=== PATIENT | female | born 1985 | race Hispanic/Latino ===

== ENCOUNTER 2023-05-10 11:27 | Outpatient (CLI) | payer OTHER, SELFPAY ==
[2023-05-10] VITALS (8 sets, daily range): BP systolic 116–133; BP diastolic 78–87; PULSE 62–83
--- NOTE | 2023-05-10 11:27 | PC.NURSE ---
The floor coverings salesperson from [facility] office arrived with pt and provided initial translation and explained to pt plan for care and isolation precautions.
--- NOTE | 2023-05-10 11:30 | PC.NURSE ---
Pt placed on droplet isolation as person under investigation for Covid.
--- NOTE | 2023-05-10 11:40 | PC.NURSE ---
Barney Woods [facility] informed of this 34 wk pt's arrival from [facility] who reported pt had headache, blurred vision, body aches, no fever, and BP was higher than her normal in the office. Pt is a previous C/S. Order received for labs.
--- NOTE | 2023-05-10 12:40 | PC.NURSE ---
Used translation line ( Brittany- ID# [id number]) to obtain additional information from pt. Pt states her headache, blurred vision, and some body aches were this morning and she doesn't have those symptoms anymore. Pt informed I have seen a couple of contractions or uterine irritability on the monitor- she denies feeling any abdominal pain, tightening, cramping, pressure, back, or thigh pain. Denies vaginal leakage of fluid or bleeding.
[2023-05-10 12:43] LABS: Basophils Percent Auto 0.3 % (0.2-1.2); Eosinophils Percent Auto 0.3 % (0-4.4); Hematocrit 35.6 % (37.0-47.0); Hemoglobin 12.1 g/dL (12.0-15.0); Immature Granulocyte Absolute 0.05 K/mm3 (0.00-0.031); Immature Granulocyte Percent A 0.4 % (0-0.5); Lymphocytes Absolute Auto 0.99 K/mm3 (0.9-3.2); Lymphocytes Percent Auto 8.8 % (18.3-44.2); Mean Corpuscular Hemoglobin 30.9 pg (26-34); Mean Corpuscular Volume 90.8 fl (80-100); Mean Platelet Volume 12.3 fl (7.4-10.4); Monocytes Absolute Auto 0.7 K/mm3 (0.1-0.6); Monocytes Percent Auto 6.3 % (2.6-8.5); Neutrophils Absolute Auto 9.5 K/mm3 (1.3-6.7); Neutrophils Percent Auto 83.9 % (45.5-73.1); Platelet Count Result 183 k/mm3 (150-375); Red Blood Count 3.92 M/mm3 (4.2-5.4); Red Cell Distribution Width 13.5 % (11.5-14.5); White Blood Count 11.3 K/mm3 (4.5-10.0)
[2023-05-10 12:54] LABS: Alanine Aminotransferase 17 U/L (6-35); Alkaline Phosphatase 171 U/L (38-126); Anion Gap 8 mmol/L (8-16); Aspartate Amino Transferase 21 U/L (14-36); Bilirubin,Total 0.4 mg/dL (0.2-1.3); Blood Urea Nitrogen 20 mg/dL (7-17); Calcium 8.8 mg/dL (8.4-10.2); Carbon Dioxide 18 mmol/L (22-30); Chloride 107 mmol/L (98-107); Estimated Glomerular Filt Rate > 60; Glucose 113 mg/dL (65-110); Potassium 4.4 mmol/L (3.4-5.0); Sodium 133 mmol/L (137-145)
[2023-05-10 13:19] LABS: Influenza A QL RT-PCR Negative (Negative); Influenza B QL RT-PCR Negative (Negative); RSV RNA, RT-PCR Negative (Negative); SARS-CoV-2 RNA PCR Negative (Negative)
--- NOTE | 2023-05-10 13:39 | PC.NURSE ---
Barney GIVENSM informed of reactive NST, BP's, and lab results. To fax lab results to office. OK to discharge to home with PIH precautions.
--- NOTE | 2023-05-10 14:15 | PC.NURSE ---
Used translation line (Wave - Private Location App ID # [id number]) to explain lab results to pt and go over discharge instructions. Also, scheduled pt for a preadmission appt prior to her scheduled C/S. Answered all of pt's questions and gave work release form for her to be late to work today.
== END 2023-05-10 14:17 | disposition home or self-care (01) ==
LOC: ANHOBOP 11:37 → ANHOBPP 11:37
PROVIDERS: Advanced Practice Midwife; Visit Provider Obstetrics & Gynecology
DX: O13.9 Gestational [pregnancy-induced] hypertension without significant proteinuria, unspecified trimester (principal)
CPT/HCPCS: 36415; 59025; 80053; 84550; 85025; 87637; 99199

== ENCOUNTER 2023-05-25 09:43 | Outpatient (CLI) | payer OTHER, SELFPAY ==
[2023-05-25] VITALS (11 sets, daily range): BP systolic 108–174; BP diastolic 78–106; PULSE 48–70
[2023-05-25 10:17] LABS: Basophils Percent Auto 0.3 % (0.2-1.2); Eosinophils Absolute Auto 0.1 K/mm3 (0-0.3); Eosinophils Percent Auto 0.9 % (0-4.4); Hematocrit 38.8 % (37.0-47.0); Hemoglobin 12.7 g/dL (12.0-15.0); Immature Granulocyte Absolute 0.03 K/mm3 (0.00-0.031); Immature Granulocyte Percent A 0.3 % (0-0.5); Lymphocytes Absolute Auto 2.33 K/mm3 (0.9-3.2); Lymphocytes Percent Auto 25.6 % (18.3-44.2); Mean Corpuscular HGB Conc 32.7 g/dl (32-36); Mean Corpuscular Hemoglobin 30.4 pg (26-34); Mean Corpuscular Volume 92.8 fl (80-100); Mean Platelet Volume 12.3 fl (7.4-10.4); Monocytes Absolute Auto 0.8 K/mm3 (0.1-0.6); Monocytes Percent Auto 9.2 % (2.6-8.5); Neutrophils Absolute Auto 5.8 K/mm3 (1.3-6.7); Neutrophils Percent Auto 63.7 % (45.5-73.1); Platelet Count Result 192 k/mm3 (150-375); Red Blood Count 4.18 M/mm3 (4.2-5.4); Red Cell Distribution Width 13.7 % (11.5-14.5); White Blood Count 9.1 K/mm3 (4.5-10.0)
[2023-05-25 10:22] LABS: Appearance Urine Clear (Clear); Bacteria Urine None Seen /hpf; Bilirubin Urine Negative (Negative); Blood Urine 1+ (Negative); Color Urine Yellow (Yellow); Glucose Urine UA Negative (Negative); Ketones Urine Negative (Negative); Leukocyte Esterase Ur Negative LEU/UL (NEGATIVE); Nitrate Urine Negative (Negative); Non Pathogenic Casts 0-2; Protein Urine 3+ mg/dL (Negative); RBC Urine 0-2 /hpf (0-2); Squamous Epithelial Cell Urine Occasional /hpf (Few); Urobilinogen Urine 0.2 mg/dL (<2.0); WBC Urine 0-5 /hpf (0-3); pH Urine 5.5 (5.0-9.0)
[2023-05-25 10:27] LABS: Alanine Aminotransferase 17 U/L (6-35); Alkaline Phosphatase 234 U/L (38-126); Anion Gap 8 mmol/L (8-16); Aspartate Amino Transferase 23 U/L (14-36); Bilirubin,Total 0.3 mg/dL (0.2-1.3); Blood Urea Nitrogen 22 mg/dL (7-17); Carbon Dioxide 17 mmol/L (22-30); Chloride 109 mmol/L (98-107); Estimated Glomerular Filt Rate > 60; Glucose 89 mg/dL (65-110); Potassium 4.5 mmol/L (3.4-5.0); Sodium 134 mmol/L (137-145); Uric Acid 7.2 mg/dL (2.5-7.5)
[2023-05-25 10:29] LABS: Creatinine Urine 36.4 mg/dL
[2023-05-25 10:40] LABS: Add Urine Microscopic? YES
[2023-05-25 10:56] LABS: Total Protein Urine Random 332 mg/dL; Ur Ttl Prot Creatinine Ratio 9.12 mg/mg (0-0.20)
--- NOTE | 2023-05-25 11:34 | PC.NURSE ---
1114- Dr. Lockhart notified of lab results, vital signs, and NST. Orders received to keep patient overnight, patient able to eat lunch, give celestone and tylenol for headache. NST qshift and vital signs q2 hours.
[2023-05-25] MEDS: ACETAMINOPHEN 500 MG TABLET 1000 MG PO (12:02)
[2023-05-25] MEDS: BETAMETHASONE SOD PHOS/ACETATE 30 MG/5 ML VIAL 12 MG IM (12:03)
--- NOTE | 2023-05-25 14:38 | PC.NURSE ---
Patient declines headache at this time. Vital signs WNL
--- NOTE | 2023-05-25 15:12 | PC.NURSE ---
1450- Dr. Lockhart updated on vital signs and patient's resolved headache. Okay to discharge, instructions given to return on Monday (05/27) for second dose of steroid, NST, and PIH labs. Strict precautions given on when to return to labor and delivery. Pre-e instructions given to patient. Patient in agreement with plan of care.
== END 2023-05-25 15:25 | disposition home or self-care (01) ==
LOC: ANHOBOP 09:52 → ANHOBPP 09:52
PROVIDERS: Visit Provider Obstetrics & Gynecology
DX: O13.9 Gestational [pregnancy-induced] hypertension without significant proteinuria, unspecified trimester (principal); Z3A.00 Weeks of gestation of pregnancy not specified
CPT/HCPCS: 36415; 59025; 80053; 81001; 82570; 84156; 84550; 85025; 87086; 96372; 99199; A9270; J0702

== ENCOUNTER 2023-05-29 10:44 | Inpatient (IN) | payer OTHER, SELFPAY ==
[2023-05-29] VITALS (12 sets, daily range): BP systolic 121–160; BP diastolic 85–99; PULSE 50–72; RESP 16; TEMP 36.4–36.8
[2023-05-29 11:36] LABS: Basophils Percent Auto 0.4 % (0.2-1.2); Eosinophils Absolute Auto 0.1 K/mm3 (0-0.3); Eosinophils Percent Auto 0.5 % (0-4.4); Hematocrit 38.5 % (37.0-47.0); Hemoglobin 12.8 g/dL (12.0-15.0); Immature Granulocyte Absolute 0.06 K/mm3 (0.00-0.031); Immature Granulocyte Percent A 0.5 % (0-0.5); Lymphocytes Absolute Auto 2.83 K/mm3 (0.9-3.2); Lymphocytes Percent Auto 25.9 % (18.3-44.2); Mean Corpuscular HGB Conc 33.2 g/dl (32-36); Mean Corpuscular Volume 93.2 fl (80-100); Mean Platelet Volume 12.7 fl (7.4-10.4); Monocytes Absolute Auto 0.9 K/mm3 (0.1-0.6); Monocytes Percent Auto 7.8 % (2.6-8.5); Neutrophils Absolute Auto 7.1 K/mm3 (1.3-6.7); Neutrophils Percent Auto 64.9 % (45.5-73.1); Platelet Count Result 197 k/mm3 (150-375); Red Blood Count 4.13 M/mm3 (4.2-5.4); Red Cell Distribution Width 14.1 % (11.5-14.5); White Blood Count 10.9 K/mm3 (4.5-10.0)
[2023-05-29 11:46] LABS: Creatinine Urine 100.3 mg/dL
[2023-05-29 11:46] LABS: Alanine Aminotransferase 15 U/L (6-35); Albumin Level 2.7 g/dL (3.5-5.1); Alkaline Phosphatase 221 U/L (38-126); Anion Gap 5 mmol/L (8-16); Aspartate Amino Transferase 21 U/L (14-36); Bilirubin,Total 0.3 mg/dL (0.2-1.3); Blood Urea Nitrogen 26 mg/dL (7-17); Calcium 8.1 mg/dL (8.4-10.2); Carbon Dioxide 19 mmol/L (22-30); Chloride 108 mmol/L (98-107); Estimated Glomerular Filt Rate > 60; Glucose 111 mg/dL (65-110); Potassium 4.1 mmol/L (3.4-5.0); Sodium 132 mmol/L (137-145); Uric Acid 7.9 mg/dL (2.5-7.5)
[2023-05-29 11:49] LABS: Appearance Urine Cloudy (Clear); Bacteria Urine Rare /hpf; Bilirubin Urine Negative (Negative); Blood Urine 1+ (Negative); Color Urine Yellow (Yellow); Glucose Urine UA Negative (Negative); Ketones Urine Negative (Negative); Leukocyte Esterase Ur Negative LEU/UL (NEGATIVE); Need Manual Microscopic Reviewed; Nitrate Urine Negative (Negative); Non Pathogenic Casts 0-2; Protein Urine 3+ mg/dL (Negative); RBC Urine 0-2 /hpf (0-2); Specific Grav Ur 1.014 (1.001-1.035); Squamous Epithelial Cell Urine Moderate /hpf (Few); Urobilinogen Urine 0.2 mg/dL (<2.0); WBC Urine 0-5 /hpf (0-3); pH Urine 5.5 (5.0-9.0)
[2023-05-29 11:53] LABS: Add Urine Microscopic? YES; Total Protein Urine Random 402 mg/dL; Ur Ttl Prot Creatinine Ratio 4.01 mg/mg (0-0.20)
--- NOTE | 2023-05-29 13:00 | PM.IMHP ---
H&P: HPI History of Present Illness Date/Time: 05/29/23 13:00 Chief Complaint: nonreassuring testing Narrative: 37-year-old female, multiparous, previous at 36 weeks and 5 days who presents for nonreassuring testing. She had a BPP of 6/10 and a nonreactive NST in the office. She has a nonreactive tracing here in Labor and delivery. she denies any loss of fluid, vaginal bleeding, contractions. She reports good movement. She denies any nausea, vomiting, fever, chills. She denies any chest pain or shortness of breath. Review of Systems Review of Systems: All systems reviewed & are unremarkable except as noted in HPI and below Constitutional: Constitutional: Denies chills, Denies fatigue, Denies fever(s) and Denies weakness Eyes: Eyes: Denies blurry vision, Denies change in vision, Denies loss of peripheral vision, Denies loss of vision, Denies other visual disturbances and Denies eye pain ENT: Denies vertigo, Denies dizziness, Denies hearing loss, Denies mouth pain, Denies nasal obstruction, Denies neck mass and Denies neck pain Cardiovascular: Cardiovascular: Denies chest pain, Denies diaphoresis, Denies syncope, Denies leg edema and Denies dyspnea Respiratory: Respiratory: Denies chest congestion, Denies cough, Denies hemoptysis, Denies dyspnea and Denies wheezing Gastrointestinal: Gastrointestinal: Denies abdominal pain, Denies constipation, Denies diarrhea, Denies nausea and Denies vomiting Genitourinary: Genitourinary: Denies hematuria, Denies change in libido, Denies nocturia, Denies genital lesions, Denies flank pain and Denies urinary urgency Musculoskeletal: Musculoskeletal: Denies abnormal gait, Denies back pain, Denies myalgias, Denies arthralgias, Denies joint swelling, Denies muscle weakness and Denies neck pain Integumentary/Breasts: Skin/Breast: Denies swelling, Denies breast pain, Denies breast mass, Denies dry skin, Denies nipple discharge, Denies unusual bruising and Denies jaundice Neurologic: Denies Neuro-related abnormal movements, Denies Abnormal speech present, Denies abnormal gait, Denies behavioral changes, Denies confusion, Denies vertigo, Denies dizziness, Denies syncope, Denies loss of vision, Denies memory loss, Denies convulsions and Denies weakness Psychiatric: Psychiatric: Denies abnormal sleep pattern, Denies behavioral changes, Denies change in libido, Denies confusion, Denies depression, Denies anhedonia and Denies memory loss Endocrine: Endocrine: Reports no additional endocrine complaints, Denies change in libido and Denies fatigue Hematologic/Lymphatic: Hematologic/Lymphatic: Reports no additional hematologic/lymphatic complaints Allergic/Immunologic: Allergic/Immunologic: Reports no additional allergic/immunologic complaints and Denies wheezing [facility] Family History Family History (Updated 05/27/23 @ 14:28 by Echo Aviles, JOSÉ MIGUEL) Grandparent Diabetes mellitus Social History Social History Substance use: never Spiritual care concerns: No Meds Home Medications and Allergies Home Medications Medication Instructions Recorded Confirmed Type insulin NPH isoph U-100 human 100 16 unit subcut HS 05/10/23 05/27/23 History unit/mL subcutaneous suspension (Humulin N NPH U-100 Insulin (isophane susp)) vit no.95-ferrous 1 tablet PO DAILY 05/10/23 05/27/23 History fumarate 28 mg-folic acid 800 mcg tablet () Allergies Allergy/AdvReac Type Severity Reaction Status Date / Time No Known Allergies Allergy Verified 05/27/23 14:14 Vital Signs Vital Signs - 24 hr 05/29/23 11:00 05/29/23 11:21 05/29/23 11:31 Pulse Rate 53 L 62 Blood Pressure 153/99 H 122/89 Oxygen Delivery Room Air 05/29/23 11:46 05/29/23 12:01 05/29/23 12:31 Pulse Rate 64 50 L 52 L Blood Pressure 123/99 H 160/86 H 133/94 H Oxygen Delivery Exam Const: General: cooperative, healthy appearing, comfortable and
[2023-05-29] MEDS: BETAMETHASONE SOD PHOS/ACETATE 30 MG/5 ML VIAL 12 MG IM (13:48)
[2023-05-29 16:32] LABS: HIV 1/2 Ab P24 Ag Result Negative (Negative)
[2023-05-29 18:00] LABS: Glucose Point of Care 147 mg/dl (65-105)
[2023-05-29] MEDS: INSULIN HUMAN NPH (*BKC) 100 UNITS/ML 16 UNITS SUB-Q (22:02)
[2023-05-29] MEDS: LACTATED RINGERS 1,000 ML 125 ML IV CONT (23:40)
[2023-05-30] VITALS (49 sets, daily range): BP systolic 102–173; BP diastolic 54–95; PULSE 49–75; RESP 16–18; TEMP 36.1–36.7; O2SAT 92–99
--- NOTE | 2023-05-30 01:34 | LDADM ---
This patient, aLdan Sawyer, was admitted to OB Post 115 on 05/29/23 at 13:30. Plans for labor, pain management and were discussed with patient. Patient/family oriented to hospital policies and general routines including ID bracelet, bed and alarms, visiting hours, pain management, procedures, bathroom and other care routines, personal items, smoking policy, room service/diet and guest tray routines, infant security routines, and visiting hours. Patient/Family are encouraged to report perceived risks to care and to ask questions if they do not understand what they are told or what they should do. See OBIX for further documentation.
[2023-05-30 05:39] LABS: Glucose Point of Care 179 mg/dl (65-105)
--- NOTE | 2023-05-30 06:24 | PN_ITS ---
This report was moved to the correct visit on 05/30/2023. The original report was signed by Graham Ramirez II, MD on 05/30/23623. Anes - Initial Pre Proc Eval Procedure: Operation Date: 05/30/23 07:30 Proposed Procedures p Section - Anne-Marie Lockhart MD Date/Time: 05/30/23 06:22 Surgeon: Anne-Marie Lockhart MD Pre Op Diagnosis: Repeat /PreAdmit Patient Data Age: 37 Gender: F Height: Weight: Allergies Allergy/AdvReac Type Severity Reaction Status Date / Time No Known Allergies Allergy Verified 05/27/23 14:14 Home Medications Medication Instructions Recorded Confirmed Type insulin NPH isoph U-100 human 100 16 unit subcut HS 05/10/23 05/29/23 History unit/mL subcutaneous suspension (Humulin N NPH U-100 Insulin (isophane susp)) vit no.95-ferrous 1 tablet PO DAILY 05/10/23 05/29/23 History fumarate 28 mg-folic acid 800 mcg tablet () Patient hx anesthesia problems: none Family hx anesthesia problems: none Results Review: All pre-operative results and documents have been reviewed as part of the pre- operative evaluation. [facility] Past Medical History Medical History (Updated 05/30/23 @ 06:23 by Graham Ramirez MD) 36 weeks gestation of Gestational diabetes mellitus (GDM) affecting , antepartum Pre-eclampsia in third trimester Surgical History Surgical History (Updated 05/30/23 @ 06:23 by Graham Ramirez MD) History of appendectomy Previous delivery, delivered Family History Family History Grandparent Diabetes mellitus Social History Social History Smoking status: Never smoker Second hand tobacco smoke exposure: No Substance use: never Lack of Transportation: No Lack of Food: Never True Current Housing: I Have Housing Concerned About Future Housing: No Difficulty Paying Gas/Electric Bills: No Difficulty Paying for Meds: No Currently Unemployed: No Education: Grade School Difficulty w/ Childcare or Family Care: No Spiritual care concerns: No Anes - Eval Final PreProcedure Day of Procedure 05/30/23 06:22 Patient weight: obese ASA classification: III Emergent: no Anesthetic plan: proceed Anesthesia type and monitoring: regional spinal and standard monitoring Results Review: All pre-operative results and documents have been reviewed as part of the pre- operative evaluation. Informed Consent: The patient's anesthetic plan and its attendant risks and benefits were discussed with the patient/family/POA. Questions were solicited and answers provided to the satisfaction of the patient/family/POA. This report may have been done utilizing a voice recognition system. Attempts have been made to correct errors. However, there may be uncorrected grammatical, spelling, and recognition errors present. Report Initialized date/time: Graham Ramirez II, MD 05/30/23623 Electronically signed by: Graham Ramirez II, MD 05/30/23623 [facility]
[2023-05-30] MEDS: INSULIN HUMAN REGULAR (*BKC) 100 UNITS/ML SUB-Q (06:31)
[2023-05-30] MEDS: LACTATED RINGERS 1,000 ML 125 ML IV CONT ×3 (06:35→09:30)
[2023-05-30 07:23] LABS: Glucose Point of Care 142 mg/dl (65-105)
--- NOTE | 2023-05-30 07:25 | WPDHPUPDATE1 ---
History and Physical Update Update Date/Time: 05/30/23 07:25 History and Physical has been reviewed, including an updated exam of the patient. There are NO changes in the patient's condition. Risks, benefits, and alternatives have been discussed and questions answered. Patient agrees to proceed with procedure.
--- NOTE | 2023-05-30 07:26 | PM.IMHP ---
H&P: [facility] History of Present Illness Date/Time: 05/30/23 07:26 Chief Complaint: Nonreassuring heart tone, nonreassuring testing Narrative: this patient is a 37-year-old multiparous female with a previous . She has preeclampsia, insulin controlled diabetes, nonreassuring testing. To proceed with today, she is 36 weeks and 6 days. She understands the procedure in detail. She understands risk. She understands that injuries may occur that result in hospitalization, more surgery, and severe illness. She understands there is a risk of hemorrhage and infection. She denies any nausea, vomiting, fever, chills. She denies any chest pain or shortness of breath. Review of Systems Review of Systems: All systems reviewed & are unremarkable except as noted in HPI and below Constitutional: Constitutional: Denies chills, Denies fatigue, Denies fever(s) and Denies weakness Eyes: Eyes: Denies blurry vision, Denies change in vision, Denies loss of peripheral vision, Denies loss of vision, Denies other visual disturbances and Denies eye pain ENT: Denies vertigo, Denies dizziness, Denies hearing loss, Denies mouth pain, Denies nasal obstruction, Denies neck mass and Denies neck pain Cardiovascular: Cardiovascular: Denies chest pain, Denies diaphoresis, Denies syncope, Denies leg edema and Denies dyspnea Respiratory: Respiratory: Denies chest congestion, Denies cough, Denies hemoptysis, Denies dyspnea and Denies wheezing Gastrointestinal: Gastrointestinal: Denies abdominal pain, Denies constipation, Denies diarrhea, Denies nausea and Denies vomiting Genitourinary: Genitourinary: Denies hematuria, Denies change in libido, Denies nocturia, Denies genital lesions, Denies flank pain and Denies urinary urgency Musculoskeletal: Musculoskeletal: Denies abnormal gait, Denies back pain, Denies myalgias, Denies arthralgias, Denies joint swelling, Denies muscle weakness and Denies neck pain Integumentary/Breasts: Skin/Breast: Denies swelling, Denies breast pain, Denies breast mass, Denies dry skin, Denies nipple discharge, Denies unusual bruising and Denies jaundice Neurologic: Denies Neuro-related abnormal movements, Denies Abnormal speech present, Denies abnormal gait, Denies behavioral changes, Denies confusion, Denies vertigo, Denies dizziness, Denies syncope, Denies loss of vision, Denies memory loss, Denies convulsions and Denies weakness Psychiatric: Psychiatric: Denies abnormal sleep pattern, Denies behavioral changes, Denies change in libido, Denies confusion, Denies depression, Denies anhedonia and Denies memory loss Endocrine: Endocrine: Reports no additional endocrine complaints, Denies change in libido and Denies fatigue Hematologic/Lymphatic: Hematologic/Lymphatic: Reports no additional hematologic/lymphatic complaints Allergic/Immunologic: Allergic/Immunologic: Reports no additional allergic/immunologic complaints and Denies wheezing [facility] Past Medical History Medical History (Updated 05/30/23 @ 07:28 by Anne-Marie Lockhart MD) 36 weeks gestation of Gestational diabetes mellitus (GDM) affecting , antepartum Pre-eclampsia in third trimester Surgical History Surgical History (Updated 05/30/23 @ 06:23 by Graham Ramirez MD) History of appendectomy Previous delivery, delivered Family History Family History Grandparent Diabetes mellitus Social History Social History Smoking status: Never smoker Second hand tobacco smoke exposure: No Substance use: never Lack of Transportation: No Lack of Food: Never True Current Housing: I Have Housing Concerned About Future Housing: No Difficulty Paying Gas/Electric Bills: No Difficulty Paying for Meds: No Currently Unemployed: No Education: Grade School Difficulty w/ Childcare or Family Care: No Spiritua
[2023-05-30] MEDS: ceFAZolin 2 GM/D5W 50 ML 2 GM/50 ML BAG IVPB (07:40)
--- NOTE | 2023-05-30 08:23 | W.PM.OBCSD ---
OB - Delivery Note Procedure Delivery date: 05/30/23 Pre-op diagnosis: Gestational Diabetes, Non-Reassuring Status and Preeclampsia w/o severe features Post-op Diagnosis: Same ( Possible growth restriction) Procedure Performed: Repeat Surgeon: Anne-Marie Lockhart MD Anesthesia type: Spinal Description of Procedure/Findings: The patient was taken the operating room. She was prepped and draped in dorsal supine position with a leftward tilt. This was done after spinal anesthetic was applied. A low-transverse skin incision was made and carried down till of the fascia with the knife. The fascial incision was made with the knife. The fascial incision was extended laterally with Rich scissors. The fascia was tented upward superiorly and inferiorly the rectus muscles were dissected off bluntly. The rectus muscles were the midline. The preperitoneal fat and peritoneum were dissected open bluntly at the superior aspect of the rectus muscles. The peritoneal incision was extended superior and inferior with good position of bladder. The uterine incision was made with a scalpel down to the level of the amniotic cavity. The amniotic cavity was entered bluntly. The infant was delivered. The cord was clamped and cut and the infant was handed off to waiting pediatric staff. Cord bloods were obtained. The placenta was removed manually. The uterus was exteriorized. The uterus was cleared of all clots, debris and membranes. The uterus was closed in 0 Vicryl running lock fashion. An imbricating over a was placed along the incision line as well. The uterus was returned to the abdomen. The gutters were cleared of all clots and debris. The fascia was closed with 0 Vicryl running fashion. The subcutaneous tissue was irrigated pinpoint bleeders were cauterized. The skin was closed with subcuticular absorbable chio. The skin incision line was covered with glue. The patient tolerated the procedure well. She has taken recovery room in stable condition. Sponge lap and needle counts were correct x2. Specimen: Yes Estimated Blood Loss: 220 Complications: No immediate complications Condition: Stable Disposition: Floor [place] Baby Weeks of gestation at delivery: 36
[2023-05-30] MEDS: diphenhydrAMINE HCl INJ 50 MG/ML VIAL 25 MG IV PUSH (09:56)
--- NOTE | 2023-05-30 10:31 | SUR.PHASEI ---
called Dr. Lockhart regarding elevated BP. magnesium therapy order received
[2023-05-30] MEDS: OXYTOCIN 30 UNITS/NS 500 ML 30 UNITS/500 ML BAG 75 UNITS IV CONT (10:47)
[2023-05-30] MEDS: fentaNYL CITRATE INJ (*CRX) 100 MCG/2 ML VIAL 25 MCG IV PUSH ×3 (10:47→11:29)
[2023-05-30] MEDS: MAGNESIUM SULF 4 GM/WATER100ML 4 GM/100 ML BAG IVPB (10:47)
[2023-05-30] MEDS: MAGNESIUM SULF 20GM/WATER500ML 500 ML 50 MG IV CONT ×2 (11:29→21:30)
[2023-05-30] MEDS: KETOROLAC 30 MG/ML VIAL (*BKC) IV PUSH (11:47)
--- NOTE | 2023-05-30 13:52 | OBPPTRN ---
1217 Patient transferred to post room #282 via stretcher. Support person present. Oriented to unit, room, information board, rooming in, admission packet and security measures. Patient verbalizes understanding. Son translated to MOB. She V/U'd.
[2023-05-30] MEDS: LACTATED RINGERS 1,000 ML 75 ML (18:35)
[2023-05-31 04:45] VITALS: BP 128/85; PULSE 67; RESP 16; TEMP 36.4
[2023-05-31 05:03] LABS: Basophils Percent Auto 0.1 % (0.2-1.2); Hematocrit 38.1 % (37.0-47.0); Hemoglobin 13.1 g/dL (12.0-15.0); Immature Granulocyte Absolute 0.12 K/mm3 (0.00-0.031); Immature Granulocyte Percent A 0.6 % (0-0.5); Lymphocytes Absolute Auto 1.89 K/mm3 (0.9-3.2); Lymphocytes Percent Auto 9.9 % (18.3-44.2); Mean Corpuscular HGB Conc 34.4 g/dl (32-36); Mean Corpuscular Hemoglobin 31.3 pg (26-34); Mean Corpuscular Volume 90.9 fl (80-100); Mean Platelet Volume 12.6 fl (7.4-10.4); Monocytes Percent Auto 5.1 % (2.6-8.5); Neutrophils Absolute Auto 16.2 K/mm3 (1.3-6.7); Neutrophils Percent Auto 84.3 % (45.5-73.1); Platelet Count Result 180 k/mm3 (150-375); Red Blood Count 4.19 M/mm3 (4.2-5.4); Red Cell Distribution Width 13.7 % (11.5-14.5); White Blood Count 19.1 K/mm3 (4.5-10.0)
--- NOTE | 2023-05-31 07:30 | PC.NURSE ---
PT introductions made and plan of care discussed per post op c section, post , pain management, breast feeding, daily care activities, Magnesium discontinued and ordering breakfast. PT sole recipient of such care and pt used language raymond on phone. PT verbalized understanding. Pt's son still sleeping. PT received her instructions via language raymond and demonstrations and will use her son as an string studies director through out the shift.
--- NOTE | 2023-05-31 07:44 | P.PNOB_ITS ---
OB - PN: Subj Subjective Date/time seen: 05/31/23 07:44 Interval history: PP Day 1 Preeclampsia with severe features currently on MgSO4 incisional pain flatus present OB - PN: Obj Data Labs 05/31/23 04:57 05/29/23 11:21 Labs: Laboratory Results - last 24 hr 05/31/23 04:57 WBC 19.1 H RBC 4.19 L Hgb 13.1 Hct 38.1 MCV 90.9 MCH 31.3 MCHC 34.4 RDW 13.7 Plt Count 180 MPV 12.6 H Immature Gran % (Auto) 0.6 H Neut % (Auto) 84.3 H Lymph % (Auto) 9.9 L Bonner % (Auto) 5.1 Eos % (Auto) 0.0 Baso % (Auto) 0.1 L Lymph # (Auto) 1.89 Bonner # (Auto) 1.0 H Eos # (Auto) 0.0 Baso # (Auto) 0.0 Abs Immat Gran (auto) 0.12 H Absolute Neuts (auto) 16.2 H Absolute Nucleated RBC 0.0 Nucleated RBC % 0.0 OB - PN A/P Plan day: 1 Comments: MgSO4 x 24 hours continue to monitor BPs Time Spent With Patient Time: Total time spent is greater than 50% in coordination of care (as documented) at patient's floor/unit and/or counseling patient: Review of Systems Review of Systems: All systems reviewed & are unremarkable except as noted in HPI and below Exam Const: General: cooperative and healthy appearing Resp: Effort & Inspection: normal respiratory effort Cardio: Rate: regular rate GI: Other: incision CDI Skin: General skin exam: normal color Neuro: General: patient oriented x3 Extrem: Other: sequentials on bilateral
[2023-05-31 08:41] VITALS: BP 126/73; PULSE 58; RESP 16; TEMP 36.6; O2SAT 97
--- NOTE | 2023-05-31 08:53 | WPDANLDPN2 ---
Anes-Prog Note L&D Date/Time: 05/31/23 08:53 Comfortable throughout: section Neuraxial method: spinal Epidural/Spinal procedure site: clean & non-tender Neuro status: Neuro function grossly intact. Cardiovascular status: normal Respiratory status: normal Airway patency: baseline Mental status: baseline Post-Op hydration status: normal Vital Signs: Last Vital Signs Temp 97.8 F 05/31/23 08:41 Pulse 58 L 05/31/23 08:41 Resp 16 05/31/23 08:41 BP 126/73 05/31/23 08:41 Pulse Ox 97 05/31/23 08:41 O2 Del Method Room Air 05/30/23 16:40 Pain score (VAS): 0 I/O: Intake & Output 05/30/23 05/31/23 05/31/23 23:59 07:59 15:59 Intake Total 1050 Output Total 5500 3400 Balance -4450 -3400 Post-procedural complaints: none Patient feedback: Patient satisfied with anesthetic care. family at bedside served as magnetic prospecting supervisor
--- NOTE | 2023-05-31 08:54 | WPDANLDNPN2 ---
Anes-Prog Note L&D-Neuraxial Date/Time: 05/31/23 08:54 Neuraxial medications: intrathecal PF morphine Opiod-related complaints: none Patient feedback: Patient satisfied with post-operative pain management.
[2023-05-31] MEDS: MULTIVIT/MIN/PREN/FOL AC/IRON TABLET 1 TAB PO (10:27)
[2023-05-31] MEDS: IBUPROFEN 600 MG TABLET PO ×2 (10:27→17:05)
[2023-05-31] MEDS: HYDROcodone/acetaminophen (*CRX) 5-325 MG TABLET 1 TAB PO ×2 (10:28→17:43)
[2023-05-31] MEDS: SIMETHICONE 80 MG TAB.CHEW PO ×3 (10:28→17:04)
[2023-05-31] MEDS: DOCUSATE SODIUM 100 MG CAPSULE PO ×2 (10:28→17:05)
[2023-05-31] MEDS: ACETAMINOPHEN 325 MG TABLET 650 MG PO (13:55)
[2023-05-31 14:41] VITALS: BP 140/96; PULSE 58; RESP 16; TEMP 36.8; O2SAT 95
--- NOTE | 2023-05-31 16:29 | PC.NURSE ---
[id number] With the assistance of Quinton patient's oldest child 20 yrs old who is fluent in Colombian and Engish were were able to make introductions and consult with patient to assess needs related to , her plan to feed her , protecting the milk supply, and answer any questions or concerns they may have. Encouraged understanding of the benefits of skin to skin (demonstrating unwrapping and placing upright on her chest), stimulating with massage touch, changing positions to encourage wakefulness, how to watch for early feeding cues, responsive feeding, feeding on demand (aiming for 8-12 times in 24 hours, about every 2-3 hours), milk production, building/maintaining a milk supply, duration of feeding, signs of adequate intake/output and how to record on the feeding sheet. Mother works well with her with encouragement and education. Reviewed positioning and ear, shoulder, hip alignment, supporting the breast to facilitate a deep latch, asymmetrical latch (off-center), leading with the chin with a big, open, wide gape and body close to mother. Mother is able to latch her independently and was encouraged to make sure infant has more than just the nipple in his mouth, how to watch for swallowing, and mother denies pain. Infant is demonstrating good rocking motion of the jaw, lowering of the jaw at appropriate ratios with lips flanged latched deeply. Reviewed comfort measures of healing with a warm, wet washcloth to rinse breast, then leave open to air-dry, good handwashing when or touching the breast/nipples to prevent infection. We discussed when we expect to see the full volume of milk to be available with the possibility of a delay related to maternal age and only one breast stimulation in the first 24 hours. Mother voiced understanding of skin to skin, stimulating with massage touch, responsive feedings, talking to to encourage if it has been 2 -2.5 hours since the start of the last , to call if infant does not latch, or if there is discomfort with . Resources used for education were facilitated with the visual Colombian educational handouts and Colombian guide. We reviewed supply and demand, how to know her is getting enough, how to pump to protect the milk supply if infant is being fed the bottle, how to collect, store and keep things clean. RN encouraged her son to read the information so he can learn to be a support for his mother and new little sister. Resources were written inside the cover of the Colombian guide to for a few [employer] offices as options in her area to make contact with. Parents voiced understanding (through Quinton) of information, demonstrated learning and will call if there is a request for assistance. Reported to the Primary RN.
[2023-05-31 17:18] LABS: Rapid Plasma Reagin Non-Reactive (NonReactive)
[2023-05-31 21:17] VITALS: BP 128/82; PULSE 56; RESP 16; TEMP 36.7
--- NOTE | 2023-05-31 23:21 | PC.NURSE ---
This nurse went into the patient's room to grab baby for the midnight assessment. There were not any feedings or diapers marked on the blue sheet. When I asked what the last feeding was, the mom was able to recall the time and for how long, but she didn't supplement the baby after nursing. I asked her teenage son to remind her that the doctor wants baby to be supplemented after each feeding. I also showed them how to keep track of feeds and diaper changes on the blue sheet. Mom said she changed the baby's diaper earlier in my shift, but she couldn't recall what time it was or what the diaper was. I also instructed the patient that we need her to pee in the hat that's in the toilet so we can measure her urine output while she is here. Every time the patient goes to the bathroom, she removes the hat and just pees in the toilet.
[2023-06-01] MEDS: HYDROcodone/acetaminophen (*CRX) 5-325 MG TABLET 1 TAB PO ×3 (05:30→17:10)
[2023-06-01] MEDS: IBUPROFEN 600 MG TABLET PO ×3 (05:30→17:09)
[2023-06-01 07:55] VITALS: BP 142/90; PULSE 60; RESP 18; TEMP 37.3; O2SAT 98
--- NOTE | 2023-06-01 08:00 | PC.NURSE ---
Pt introductions made and plan of care discussed per post , post op c section, pain management, breast feeding, daily care activities. PT sole recipient of such instructions and language barrier identified at this time. PT given instructions per one to one discussion, mom baby care guide and demonstrations and used language line and phone language raymond and her son who speaks fluent Fijian this shift. PT verbalized understanding of such care.
--- NOTE | 2023-06-01 08:28 | PM.OBPNVD ---
OB - PN: Subj Subjective Date/time seen: 06/01/23 08:28 Interval history: PP Day 1 Preeclampsia with severe features currently on MgSO4 incisional pain flatus present Patient comments: no complaints, pain well controlled, incisional pain, tolerating diet and flatus present OB - PN: Obj Data Labs 05/31/23 04:57 05/29/23 11:21 Labs: Laboratory Results - last 24 hr 05/29/23 15:32 RPR Non-reactive OB - PN A/P Plan day: 2 Plan: routine care Comments: POD#2 LTCS - no problems, Time Spent With Patient Time: Total time spent is greater than 50% in coordination of care (as documented) at patient's floor/unit and/or counseling patient: Exam Const: General: comfortable, no acute distress and alert Resp: Effort & Inspection: normal respiratory effort Auscultation: no crackles, no rales and no rhonchi Cardio: Rate: regular rate Heart sounds: no click, no murmurs and no rubs GI: Inspection: non-distended Auscultation: normal bowel sounds Other: Incision - CDI Extrem: General: normal to inspection, no pedal edema and no calf tenderness
[2023-06-01] MEDS: DOCUSATE SODIUM 100 MG CAPSULE PO ×2 (10:56→17:09)
[2023-06-01] MEDS: MULTIVIT/MIN/PREN/FOL AC/IRON TABLET 1 TAB PO (10:56)
[2023-06-01] MEDS: SIMETHICONE 80 MG TAB.CHEW PO ×2 (10:57→17:09)
[2023-06-01 12:20] VITALS: BP 148/90; PULSE 64; RESP 16; TEMP 36.9; O2SAT 98
[2023-06-01 19:00] VITALS: BP 130/87; PULSE 66; RESP 16; TEMP 36.2
[2023-06-02] MEDS: IBUPROFEN 600 MG TABLET PO ×4 (03:35→23:36)
[2023-06-02] MEDS: HYDROcodone/acetaminophen (*CRX) 5-325 MG TABLET 1 TAB PO ×5 (03:35→23:36)
--- NOTE | 2023-06-02 07:39 | PM.OBPNVD ---
OB - PN: Subj Subjective Date/time seen: 06/02/23 07:39 Interval history: PP Day 3 Preeclampsia with severe features, bp labile denies sxs incisional pain, moving around a little during the day flatus present baby breast feeding , weight loss OB - PN: Obj Data Labs 05/31/23 04:57 05/29/23 11:21 OB - PN A/P Plan day: 3 Plan: routine care Time Spent With Patient Time: Total time spent is greater than 50% in coordination of care (as documented) at patient's floor/unit and/or counseling patient: Review of Systems Review of Systems: All systems reviewed & are unremarkable except as noted in HPI and below Exam Const: General: cooperative Resp: Effort & Inspection: normal respiratory effort GI: Other: Incision CDI
[2023-06-02 09:07] VITALS: BP 128/85; PULSE 72; RESP 20; TEMP 36.4; O2SAT 98
[2023-06-02] MEDS: DOCUSATE SODIUM 100 MG CAPSULE PO ×2 (09:45→16:37)
[2023-06-02] MEDS: MULTIVIT/MIN/PREN/FOL AC/IRON TABLET 1 TAB PO (09:45)
[2023-06-02 12:36] VITALS: BP 143/93; PULSE 81; RESP 20; TEMP 36.7; O2SAT 97
[2023-06-02 16:40] VITALS: BP 134/95
--- NOTE | 2023-06-02 17:04 | PC.NURSE ---
1536 Introductions were made, then consulted with patient to assess needs related to /supplementing formula. Discussed with mother her?plans to feed?her and the?experience so far. Resources provided for inpatient and outpatient services with the feeding sheet, mom/baby guide and name written on the communication board. Father interpreted for mother information regarding . Mother feeding formula at present and denies need for further information at this time. Mother voiced understanding of information and will call if there is a request for assistance. Reported to the Primary RN.
[2023-06-02 19:25] VITALS: BP 147/94; PULSE 70; RESP 16; TEMP 36.4
[2023-06-03 05:00] VITALS: BP 142/96; PULSE 78; RESP 16; TEMP 36.2
[2023-06-03] MEDS: HYDROcodone/acetaminophen (*CRX) 5-325 MG TABLET 1 TAB PO ×3 (05:01→17:56)
[2023-06-03] MEDS: IBUPROFEN 600 MG TABLET PO ×2 (05:01→17:55)
--- NOTE | 2023-06-03 08:00 | PC.NURSE ---
Pt introductions made and plan of care discussed per post , post op c section, pain management, breast feeding, daily care activities and pending discharge to [facility]. PT and daughter both recipient of such instructions and language barrier identified at this time. Daughter speaks fluent wolof and interprets for her mom. PT given instructions per one to one discussion, mom baby care guide and demonstrations and used her daughter and phone language raymond and her son who speaks fluent Barbadian this shift. PT verbalized understanding of such care.
--- NOTE | 2023-06-03 08:25 | PM.OBPNVD ---
OB - PN: Subj Subjective Date/time seen: 06/03/23 08:25 Interval history: PP Day 3 Preeclampsia with severe features, bp labile denies sxs incisional pain, moving around a little during the day flatus present baby breast feeding , weight loss Patient comments: no complaints, pain well controlled, incisional pain, tolerating diet and flatus present OB - PN: Obj Data Labs 05/31/23 04:57 05/29/23 11:21 OB - PN A/P Assessment and Plan (1) Pre-eclampsia in third trimester: Code(s): O14.93 - Unspecified pre-eclampsia, third trimester Status: Acute (2) Gestational diabetes mellitus (GDM) affecting , antepartum: Code(s): O24.419 - Gestational diabetes mellitus in , unspecified control Status: Acute (3) delivery delivered: Code(s): O82 - Encounter for delivery without indication Status: Acute Plan postoperative Day number 3. low-transverse delivery, preeclampsia, gestational diabetes, to continue pain management and observation for preeclampsia. Plan day: 3 Plan: routine care and other Comments: Incision check in one week. Given precautions Time Spent With Patient Time: Total time spent is greater than 50% in coordination of care (as documented) at patient's floor/unit and/or counseling patient: Exam Const: General: comfortable, no acute distress and alert Resp: Effort & Inspection: normal respiratory effort Auscultation: no crackles, no rales and no rhonchi Cardio: Rate: regular rate Heart sounds: no click, no murmurs and no rubs GI: Inspection: non-distended GI Palp: No Tenderness to palpation present (GI) Auscultation: normal bowel sounds Other: Incision - CDI Extrem: General: normal to inspection, no pedal edema and no calf tenderness
--- NOTE | 2023-06-03 08:37 | PM.OBDSVD ---
DS: Admitting Diagnosis Discharge Date June 03 2023 Admitting Diagnosis term , deliveries OB - DS: Summary OB Procedures : None OB Procedures Intrapartum: Spontaneous Vag Delivery OB Procedures: : None Peripartum Data Procedures: Procedures Operation Date: 05/30/23 07:30 Actual Procedure Side Surgeon p Section Not Applicable Anne-Marie Lockhart MD Operation Date: 05/30/23 07:30 Actual Procedure Side Surgeon p Section Not Applicable Anne-Marie Lockhart MD Time Spent with Patient Time attestation: Total time spent providing and/or coordinating discharge services: DS: Data Data Completed and Pending Completed studies during hospitalization: Pending at discharge 05/30/23 09:46 Surgical [PTH] Routine Discharge Plan Discharge Discharging Clinician: Anne-Marie Lockhart Patient Disposition: Home, Self-Care Activity: pelvic rest Diet: regular Patient Instructions: Antibiotic Form Stand Alone Forms: General Discharge Information Follow-up/Referrals: Anne-Marie Lockhart MD [Physician] - Discharge Medications: Continued PNV cmb#95-ferrous fumarate-FA [] 28 mg iron- 800 mcg Tablet 1 tablet PO DAILY Discontinued Humulin N NPH U-100 Insulin 100 unit/mL suspension 16 unit SUBCUT HS Date of admission: 05/29/23 13:30 Primary Care Provider: PHYSICIAN,AVIONICS MECHANIC Admitting Provider: Anne-Marie Lockhart Attending physician on admission: Anne-Marie Lockhart Condition: Stable
[2023-06-03 09:05] VITALS: BP 138/96; PULSE 59; RESP 18; TEMP 36.7; O2SAT 99
[2023-06-03] MEDS: MULTIVIT/MIN/PREN/FOL AC/IRON TABLET 1 TAB PO (09:48)
[2023-06-03] MEDS: SIMETHICONE 80 MG TAB.CHEW PO (09:48)
[2023-06-03] MEDS: DOCUSATE SODIUM 100 MG CAPSULE PO ×2 (09:48→17:55)
[2023-06-03] MEDS: TETANUS,DIPHTHERIA,AC PERTUSSIS ADULT (0.5 ML) BOOSTRIX IM (09:54)
[2023-06-03 12:50] VITALS: BP 134/82; PULSE 76; RESP 18; TEMP 37.3; O2SAT 96
[2023-06-03 17:00] VITALS: BP 138/88; PULSE 66; RESP 18; TEMP 37.2; O2SAT 99
--- NOTE | 2023-06-03 17:00 | PC.NURSE ---
Discussed with pt's son, Quinton about discharging his mom to [facility] and needing him to mushroom picker medications from pt's pharmacy on file prior to discharge. He also needs to bring the car seat for a car seat challenge prior to being discharged. He verbalized understanding and also conveyed to his mom the plan of care regarding discharge this evening to [facility] status. Pt verbalized understanding. PT given Bengali handouts to coincide with discharge information for her to read tonight and will discuss in am as well as use the stratus line for discharge teaching.
[2023-06-03 17:30] VITALS: BP 138/88; PULSE 66; RESP 18; TEMP 37.2; O2SAT 99
== END 2023-06-03 20:30 | disposition home or self-care (01) | DRG 540 ==
LOC: ANHOBPP 05-30 10:55 → ANHOB2 05-30 12:28
PROVIDERS: Admitting Provider Obstetrics & Gynecology; Visit Provider Obstetrics & Gynecology
PROC: 10D00Z1 Extraction of Products of Conception, Low, Open Approach (ICD-10-PCS; CPT 59514; principal; 2023-05-30 07:30)
DX: O34.219 Maternal care for unspecified type scar from previous cesarean delivery (principal); O76 Abnormality in fetal heart rate and rhythm complicating labor and delivery; O24.424 Gestational diabetes mellitus in childbirth, insulin controlled; O77.0 Labor and delivery complicated by meconium in amniotic fluid; O14.04 Mild to moderate pre-eclampsia, complicating childbirth; Z3A.36 36 weeks gestation of pregnancy; Z37.0 Single live birth
CPT/HCPCS: 36415; 80053; 81001; 82570; 82948; 84156; 84550; 85025; 86592; 86703; 86850; 86900; 86901; 87086; 88307; 90715; A9270; G0378; G0379; G0432; J0690; J0702; J1200; J1815; J1885; J2274; J2590; J3010; J3475; J7120

== ENCOUNTER 2024-05-01 21:29 | Emergency (ER) | payer OTHER, SELFPAY ==
--- NOTE | ~2024-05-01 | XR_ITS ---
HISTORY: injury COMPARISON: None TECHNIQUE: 3 views of the left first digit FINDINGS: No acute fracture is appreciated. No significant soft tissue swelling. Blunting of the distal phalanx of the first digit is present, likely congenital. IMPRESSION: No acute fracture, as detailed above. Reviewed, dictated and finalized at location A. RDS MANAGEMENT SPECIALIST
[2024-05-01 21:35] VITALS: BP 135/74; PULSE 65; RESP 16; TEMP 36.6; O2SAT 97
--- NOTE | 2024-05-01 21:41 | PC.NURSE ---
Pt. offered a clarification operator. Pt. declined. Pt. prefers to use her son who is at bedside for translation.
--- NOTE | 2024-05-01 22:30 | ED_ITS ---
HPI - Extremity Injury (Upper) General Chief Complaint: Extremity Injury, Upper Stated Complaint: L hand pain Time Seen by Provider: 05/01/24 21:34 Source: patient and family Mode of arrival: ambulatory Limitations: language barrier ( Her family is interpreting, which she prefers) History of Present Illness HPI narrative: this is a 38-year-old female that presents to the emergency department for left 1st finger injury. Sustained at work today. Reports her finger bent backwards. Reports pain with range of motion. Denies numbness. Related Data Home Medications Medication Instructions Recorded Confirmed vit no.95-ferrous 1 tablet PO DAILY 05/10/23 05/29/23 fumarate 28 mg-folic acid 800 mcg tablet () Allergies Allergy/AdvReac Type Severity Reaction Status Date / Time No Known Allergies Allergy Verified 05/01/24 21:30 Review of Systems Review of Systems: CONSTITUTIONAL: Denies fever MUSCULOSKELETAL: Reports joint pain, and myalgia. NEUROLOGIC: Denies numbness, or weakness. All systems reviewed & are unremarkable except as noted in HPI and below PMFSH Past Medical History Medical History (Updated 05/01/24 @ 22:31 by Alisha Saldana PA-C) 36 weeks gestation of Gestational diabetes mellitus (GDM) affecting , antepartum Pre-eclampsia in third trimester Surgical History Surgical History (Updated 05/30/23 @ 06:23 by Graham Ramirez MD) History of appendectomy Previous delivery, delivered Family History Family History Grandparent Diabetes mellitus Social History Social History Smoking status: Never smoker Second hand tobacco smoke exposure: No Substance use: never Do You Feel Safe in your Home?: Yes Lack of Transportation: No Lack of Food: Never True Current Housing: I Have Housing Concerned About Future Housing: No Difficulty Paying Gas/Electric Bills: No Difficulty Paying for Meds: No Currently Unemployed: No Education: Grade School Difficulty w/ Childcare or Family Care: No Spiritual care concerns: No Exam Narrative: GENERAL: Well-appearing, well-nourished, and in no acute distress. HEAD: Normocephalic, atraumatic. EXTREMITIES: Normal range of motion. No edema or obvious deformity. Normal radial pulse. Normal sensation SKIN: Warm, dry, no rash. NEURO: No focal deficits. Alert and oriented x3. PSYCH: Normal mood and affect Course Course Emergency Course: Patient updated on her workup and agrees with plan of care Vital Signs Vital signs: Vital Signs Temperature 97.8 F 05/01/24 21:35 Pulse Rate 65 05/01/24 21:35 Respiratory Rate 16 05/01/24 21:35 Blood Pressure 135/74 05/01/24 21:35 Pulse Oximetry 97 05/01/24 21:35 Oxygen Delivery Room Air 05/01/24 21:35 Temperature 97.8 F 05/01/24 21:35 Pulse Rate 65 05/01/24 21:35 Respiratory Rate 16 05/01/24 21:35 Blood Pressure 135/74 05/01/24 21:35 Pulse Oximetry 97 05/01/24 21:35 Oxygen Delivery Room Air 05/01/24 21:35 MDM - Extremity Injury (Upper) MDM Narrative Medical decision making narrative: patient presents to the emergency department after injury to the left 1st finge r. She is neurovascularly intact. Left 1st finger x-ray without acute osseous abnormalities. Patient placed in Link wrap. Instructed to rest, ice and take [id number] pain medication as needed. She is to follow up with primary provider. She was given warnings to return to the ER Differential Diagnosis Differential diagnosis: Likely finger sprain, dislocation of finger and other (finger fracture) Imaging Data Radiologist's impression: ITS Impressions Finger X-Ray 05/01/24 22:03 IMPRESSION: No acute fracture, as detailed above. Critical Care Time Critical Care Time Critical Care Time: No Discharge Plan Discharge Clinical Impression: Finger sprain Qualifiers: Encounter type: initial encounter Finger: thumb Sprain of finger site: metacarpophalangeal joint Laterality: left Qualified Code(s): S63.642A - Sprain of metacarpophalangeal joint of left thumb, initial encounter Patient Disposition: Home, Self-Care Condition: Stable Instructions: Finger Sprain (ED) Additional Instructions: Return to the ER if you experience fever, redness and swelling of your extremity, numbness or any other symptoms that are concerning to you Wear LINK wrap. Ice and elevate extremity. Pain medication as needed and directed. Follow up with primary doctor for further care. Patient Language: Japanese Prescriptions: No Action PNV cmb#95-ferrous fumarate-FA [] 28 mg iron- 800 mcg Tablet 1 tablet PO DAILY Follow-up/Referrals: Cal Garcia MD [Physician] - UNKNOWN,DOCTOR [Primary Care Provider] - Stand Alone Forms: Work/School Release IP
[2024-05-01 22:49] VITALS: BP 126/83; PULSE 64; RESP 14; O2SAT 97
== END 2024-05-01 22:50 | disposition home or self-care (01) ==
PROVIDERS: Emergency Provider Physician Assistant
DX: S63.642A Sprain of metacarpophalangeal joint of left thumb, initial encounter (principal); X58.XXXA Exposure to other specified factors, initial encounter; Y99.0 Civilian activity done for income or pay
CPT/HCPCS: 73140; 99283